=== PATIENT | female | born 1940 | race Caucasian/White ===

== ENCOUNTER 2018-03-18 05:54 | Emergency (ER) | payer MEDICARE, OTHER, SELFPAY ==
[2018-03-18 06:00] VITALS: BP 203/83; PULSE 68; RESP 18; TEMP 36.2; O2SAT 100; BMI 24.7
--- NOTE | 2018-03-18 06:43 | PC.NURSE ---
Labs drawn by denture laboratory technician.
--- NOTE | 2018-03-18 06:50 | ED_ITS ---
HPI - Back Pain/Injury General Chief Complaint: Back Pain/Injury Stated Complaint: BACK PAIN DOWN THROUGH LEFT LEG History of Present Illness HPI Narrative: HPI 77 year old female presents for evaluation of 3 days of left-sided paraspinal pain that is sharp, radiates down the posterior aspect of her leg, occurred after twisting/lifting movement, it is exacerbated by physical activity and relieved by rest. Patient denies a history of recent trauma, fevers, chills, unexpected weight loss, decreased perineal sensation when toileting, difficulty urinating or incontinence, morning stiffness, IV drug use, alcoholism, recent invasive medical procedures, presyncope, abdominal pain, or dysuria. Smoking: age 19 to 26. Anticoagulation: denies anticoagulation and Plavix, denies stents. Patient took 8 acetaminophen 3 hours prior to arrival for treatment of pain. Is adamant that she only took 8 acetaminophen. M/S/F/SocHx notable for: please see HPI; remainder reviewed with patient and in chart. ROS: Negative constitutional, eye, cardiovascular, pulmonary, GI, , MSK, skin , neurologic, psychiatric, endocrine unless noted in the HPI. Exam Gen: Pleasant, non-toxic appearing, resting comfortably. HEENT: NC, AT, PEERL, EOMI. Resp: CTAB Card: RRR GI: ND, non-tender to palpation, no palpable midline masses, no palpable midline pulsatility. : No CVA tenderness to percussion bilaterally. MSK: No visible deformities, strength and tone WNL. No lower thoracic or lumbar spinal TTP, step offs or deformities. paraspinal TTP. Skin: Normal color with no visible lesions. Neuro: AO x 3, no facial asymmetry, vision and hearing WNL. Straight leg raise test - negative right, negative left. BLE distal sensation intact, 5/5 dorsiflexion / plantarflexion bilaterally. Gait: mildly antalgic, normal, narrow based gait, able to walk unassisted and stand on heels and toes with full apparent strength. Psych: Mood and affect appropriate. Labs: acetaminophen level pending. MDM Previous chart, nursing note, and vitals reviewed. A: 77 year old female presents for evaluation of 3 days of left-sided paraspinal pain that is sharp, radiates down the posterior aspect of her leg, occurred after twisting/lifting movement, it is exacerbated by physical activity and relieved by rest. DDx: muscle strain, muscle spasm, sciatica, lumbar radiculopathy, cauda equina syndrome, spinal cord abscess, vertebral osteomyelitis, vertebral diskitis, fracture, seronegative spondyloarthropathy, abdominal aortic aneurysm, abdominal aortic dissection, spontaneous hematoma, malignant spinal cord compression, acetaminophen toxicity. Evaluation: * Cauda equina - consider unlikely given normal perineal sensation, lack of incontinence or urinary retention. * Infection - abscess, vertebral osteomyelitis, and diskitis are unlikely as the patient is immunocompetent and is with an absence of infectious signs and risk factors on ROS, and a lack of point tenderness. * Fracture - doubt given the absence of spinal TTP and lack of prior trauma * Seronegative spondyloarthropathy - unlikely, no further evaluation currently indicated given the absence of morning stiffness and negative RA, psoriatic arthritis, and autoimmune disease history. * AAA or Dissection - given the absence of significant tobacco use, the lack of a palpable pulsatile abdominal mass, abdominal pain, presyncope, an abdominal aortic aneurysm as well as dissection is considered unlikely and further investigation is not currently indicated. * Spinal Metastases - given the unremarkable ROS, absence of point spinal tenderness on exam and the lack of discernible neurological deficit, no further testing regarding this etiology is currently indicated. * Acetaminophen toxicity - per report, patient took well under a clinically significant maximum dose (500 mg/tablet x 8 tablets / 63.5 kg = 63 mg/kg). APAP level pending at time of patient care transfer to the daytime provider. * Consider lumbar radiculopathy to be the most likely cause of the patient's symptoms. Counseled patient regarding natural course of radicular back pain, given return to care instructions, and recommendation for primary care physician follow up. Prescribed [employer] 5-325 x 8 tablets QHS prn pain. Patient advised use ibuprofen for baseline pain control. Patient was notified of their elevated blood pressure and recommended to follow up with their primary care physician. As the patient is without evidence of acute end organ dysfunction no further emergent evaluation is indicated as per the 2013 [facility] clinical policy. Impression: Back Pain. (please reference below for remainder of encounter information) Related Data Home Medications Medication Instructions Recorded Confirmed ASPIRIN (Aspirin EC) 81 mg PO Q DAY #0 11/28/11 03/18/18 multivitamin [Multiple Vitamins] 1 tab PO QDAY #0 02/27/17 03/18/18 Previous Rx's Medication Instructions Recorded losartan [Cozaar] 50 mg PO QDAY #90 tab 12/31/17 levothyroxine 25 mcg PO QAM #90 tab 01/14/18 Allergies Allergy/AdvReac Type Severity Reaction Status Date / Time No Known Drug Allergies Allergy Verified 03/18/18 06:15 FOR[facility]LY [facility], [facility]–1983 Surgical History Status post LASIK surgery Family History Mother Heart disease Exam Initial Vital Signs Initial Vital Signs: Vital Signs Temperature 97.2 F L 03/18/18 06:00 Pulse Rate 68 03/18/18 06:00 Respiratory Rate 18 03/18/18 06:00 Blood Pressure 203/83 H 03/18/18 06:00 Pulse Oximetry 100 03/18/18 06:00 Course Orders Ordered: ED Orders 03/18/18 06:34 Acetaminophen Stat Vital Signs - 8 hr 03/18/18 06:00 Temperature 97.2 F L Pulse Rate 68 Respiratory Rate 18 Blood Pressure 203/83 H Pulse Oximetry 100 Discharge Plan Departure Prescriptions: No Action ASPIRIN (Aspirin EC) 81 mg PO Q DAY Qty: 0 RF: 0 multivitamin [Multiple Vitamins] 1 EACH tablet 1 tab PO QDAY Qty: 0 RF: 0 losartan [Cozaar] 50 MG tablet 50 mg PO QDAY Qty: 90 RF: 2 levothyroxine 25 MCG tablet 25 mcg PO QAM Qty: 90 RF: 0
[2018-03-18 07:07] LABS: Acetaminophen 35 ug/dL (10-30)
[2018-03-18 07:52] VITALS: BP 179/80; PULSE 76; RESP 97
== END 2018-03-18 07:54 | disposition home or self-care (01) ==
PROVIDERS: Emergency Medicine; Emergency Provider Emergency Medicine; Family Provider Family Medicine; PCP Family Medicine
DX: M54.5 Low back pain (principal)
CPT/HCPCS: 36415; 80329; 99283; G0480

== ENCOUNTER → 2018-03-22 15:55 | Outpatient (CLI) | payer MEDICARE, OTHER, SELFPAY ==
--- NOTE | 2018-03-22 15:58 | DI.RAD.S_ITS ---
PROCEDURE: XR LUMBAR SPINE 2-3V INDICATIONS: Low back pain with radiculopathy TECHNIQUE: 3 views of the lumbar spine were acquired. COMPARISON: None. FINDINGS: Bones: 5 [id number] vertebrae are present. There is normal bony alignment. Narrowing of the L3-4 disc space is present. No vertebral body compression fractures. No suspicious bony lesions. Soft tissues: Overlying bowel gas pattern is normal. No suspicious soft tissue calcifications. 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 Dictated by: Gus Landry M.D. on 03/22/2018 at 16:14 Approved by: Gus Landry M.D. on 03/22/2018 at 16:15
== END ==
PROVIDERS: Family Provider Family Medicine; PCP Family Medicine; Visit Provider Nurse Practitioner Family
DX: M51.36 Other intervertebral disc degeneration, lumbar region (principal)
CPT/HCPCS: 72100

== ENCOUNTER 2018-05-24 09:45 | Outpatient (RCR) | payer MEDICARE, OTHER, SELFPAY ==
--- NOTE | 2018-04-24 16:21 | PT.OPPOC ---
Current Diagnoses Radiculopathy, lumbar region (04/24/18) Dorsalgia, unspecified (04/24/18) Provider Visit Care Team Role Provider Type Edgar Carlin MD Family Provider Physician Primary Care Provider Specialty: [facility] Address: [address] [place] [address], [id number] Email: [email or web address]- Attending Provider Advanced Practioner Clinician Specialty: [facility] Address: [address] [place] [address], [id number] Email: Plan Of Care PT-OP-T Assessment and Plan Start: 04/24/18 06:46 Freq: Status: Active Protocol: Document 04/24/18 14:00 AMB (Rec: 04/24/18 15:59 AMB [email or web address]) Physical Therapy Assessment Rehab Potential Rehabilitation Potential Good Evaluation Complexity Number of Personal Factors/Comorbidities 1-2 Number of Body Systems Impaired 4 or More Clinical Presentation at Evaluation Evolving Impairments Impairments Activity Tolerance Pain Posture Strength Goals 3 Impairment Body mechanics Short Term Goal (STG) The patient will squat down to the floor to assist her with dressing with good body mechanics and without an increase in baseline pain. STG Duration 4 weeks Retirement Goal (LTG) The patient will lift groceries from her car with good body mechanics. LTG Duration 8 weeks 2 Impairment Activity tolerance Short Term Goal (STG) The patient will be able to get back to sleep after being woken by her without left leg pain. STG Duration 4 weeks Retirement Goal (LTG) The patient will superintendent institution the kitchen to cook a meal for one hour with 2/10 pain or less. LTG Duration 8 weeks 1 Impairment Strength Short Term Goal (STG) The patient will improve her left hip and knee strength to at least 4/5. STG Duration 4 weeks Bilingual Student Tutor Goal (LTG) The patient will improve her left lower extremity strength so that she can easily get her left leg into bed without lifting it with her other leg or hand. LTG Duration 8 weeks Assessment Summary Assessment The patient attends physical therapy with signs and symptoms of lumbar radiculopathy from a bend/ twist injury. Her continued pain is most in L3 distribution. She has poor body mechanics, and poor core strength, with weakness in hip flexion and hip adduction. She will benefit from PT to improve her overall strength, reduce her pain and educate her in body mechanics to prevent further bend/lift/ twist injuries. Physical Therapy Plan Frequency and Duration Frequency of Treatment 2x/Week Duration of Treatment 8 weeks Plan of Care Start Date 04/24/18 Plan of Care End Date 06/19/18 Therapeutic Interventions Therapeutic Interventions Home Exercise Program Manual Therapy Neuromuscular Re-education Self-Care/Home Management Soft Tissue Mobilization Therapeutic Activities Therapeutic Exercises Modalities Cold Pack/Ice Massage Electric Stimulation Hot Packs Ultrasound Next Visit Focus/Plan Next Note Type Treatment Note Next Visit Plan Progress HEP, manual therapy as needed for pain control Plan of Care Dates Plan of Care Start Date 04/24/18 Plan of Care End Date 06/19/18 Please Sign and Return: I have reviewed this Plan of Care and certify that the skilled therapy services above are required to meet the patient?s needs. Physician Signature Date Printed Name and Credentials Clinical Instructor Signature Printed Name and Credentials
--- NOTE | 2018-04-24 16:21 | PT.OIE ---
Current Diagnoses Radiculopathy, lumbar region (04/24/18) Dorsalgia, unspecified (04/24/18) Past Surgical History Status post LASIK surgery Provider Visit Care Team Role Provider Type Edgar Carlin MD Family Provider Physician Primary Care Provider Specialty: Family Practice Address: [address] [place] [address], [id number] Email: [email or web address] Trinidad Attending Provider Advanced Practioner Clinician Specialty: Family Practice Address: [address] [place] [address], [id number] Email: Physical Therapy Initial Evaluation PT-OP-A Visit Information Start: 04/24/18 06:46 Freq: Status: Active Protocol: Document 04/24/18 14:00 AMB (Rec: 04/24/18 15:10 AMB [email or web address]) Out-Patient Physical Therapy Visit Information Visit Information Visit Type Initial Evaluation Visit Start Time 14:00 Visit Stop Time 14:45 Total Visit Minutes 45 Visit Number 1 Evaluation Information Evaluation Date 04/24/18 PT-OP-B Current Condition Start: 04/24/18 06:46 Freq: Status: Active Protocol: Document 04/24/18 14:00 AMB (Rec: 04/24/18 15:24 AMB [email or web address]) Current Condition History of Current Condition Onset Date 03/18/18 Current Complaints Radiating left leg pain, denies back pain History of Current Condition The patient felt immediate onset left leg pain when standing up and twisting from tyeing her shoes. She went to the ED and they diagnosed sciatica. Since then the pain has been improving, but it is still present in her groin and can go down to her mid covarrubias. She denies specific back pain. The pain is mostly in the groin and medial knee and is constant. Heat and ice seemed to make it worse initially. Left knee gave out on the stairs 2 weeks ago, but not since. 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 She has a son who lives in [place]. They live in a two story home. She does have a caregiver who comes for 3 hours on . Prior Treatments and Tests Lumbar X-ray showed narrowing of L3-4 disc space, but per her report her physician said the X-ray came back fine. Prior Functional Status Baseline Function- ADL's Independent Baseline Function- Mobility Independent Current Functional Impairments (Reported) Functional Limitations- ADL's Difficulty sleeping Functional Limitations- Mobility/Gait Decreased standing tolerance Functional Limitations- Work/School Avoiding washing the floors because she does this on her hands and knees. Personal Factors Other Personal Factors That May Effect Pt's has Alzheimer's Therapy/Recovery and she needs to be with him or else he becomes upset. PT-OP-C Subjective Start: 04/24/18 06:46 Freq: Status: Active Protocol: Document 04/24/18 14:00 AMB (Rec: 04/24/18 15:10 AMB [email or web address]) OP-PT Subjective Patient Comments Patient Comments Pt reports overall improving pain since initial injury. Sleeping continues to be painful. Patient Questionnaires Oswestry Low Back Index Oswestry Score 44 Oswestry Impairment 40 to 59% Impaired (Score 40- 59) OP-PT Pain Assessment Pain Assessment Grid Paper Pain Assessment Grid Completed Yes Location Anterior Thigh Pain Location Details Goes down to mid covarrubias Intensity 3 Description Dull Frequency Constant Comments Pain Comments Current 3-4/10; worst in last week 5-6/10. PT-OP-F Manual Assessment Start: 04/24/18 06:46 Freq: Status: Active Protocol: Document 04/24/18 14:00 AMB (Rec: 04/24/18 16:17 AMB [email or web address]) Manual Assessments Soft Tissue Assessment Soft Tissue Mobility Assessment Tenderness and tightness at left piriformis, adductors. Joint Mobility Assessment Joint Mobility Assessment Stiffness with central PAs throughout lumbar but does not reproduce pain PT-OP-L Special Tests Start: 04/24/18 06:46 Freq: Status: Active Protocol: Document 04/24/18 14:00 AMB (Rec: 04/24/18 16:14 AMB [email or web address]) Special Tests Lumbar Spine Special Tests Straight Leg Raise Test Results negative for sx reproduction PT-OP-M Strength Start: 04/24/18 06:46 Freq: Status: Active Protocol: Document 04/24/18 14:00 AMB (Rec: 04/24/18 16:14 AMB [email or web address]) Hip Strength Hip Manual Muscle Testing Right Flexion (L2) 4+ Good+ Abduction 4+ Good+ Adduction 4 Good Left Flexion (L2) 3+ Fair+ Abduction 4- Good- Adduction 3- Fair- Knee Strength Knee Manual Muscle Testing Right Flexion (S2) 5 Normal Extension (L3) 5 Normal Left Flexion (S2) 4+ Good+ Extension (L3) 4 Good Ankle/Foot Strength Ankle and Foot Manual Muscle Testing Right Dorsiflexion (L4) 5 Normal Plantarflexion (S1) 4 Good Left Dorsiflexion (L4) 5 Normal Plantarflexion (S1) 4 Good PT-OP-Q Treatments Start: 04/24/18 06:46 Freq: Status: Active Protocol: Document 04/24/18 14:00 AMB (Rec: 04/24/18 15:59 AMB [email or web address]) Therapeutic Exercises Supine Exercises 3 Supine Exercise Name hip flexor stretch Side left Reps/Minutes 30x2 Comments L leg off table, R single knee to chest 2 Supine Exercise Name lower trunk rotation, hooklying Side bilateral Reps/Minutes 15 1 Supine Exercise Name SLR hip flexion Side left Reps/Minutes 10 Comments with transversus abdominus stabilization PT-OP-T Assessment and Plan Start: 04/24/18 06:46 Freq: Status: Active Protocol: Document 04/24/18 14:00 AMB (Rec: 04/24/18 15:59 AMB [email or web address]) Physical Therapy Assessment Rehab Potential Rehabilitation Potential Good Evaluation Complexity Number of Personal Factors/Comorbidities 1-2 Number of Body Systems Impaired 4 or More Clinical Presentation at Evaluation Evolving Impairments Impairments Activity Tolerance Pain Posture Strength Goals 3 Impairment Body mechanics Short Term Goal (STG) The patient will squat down to the floor to assist her with dressing with good body mechanics and without an increase in baseline pain. STG Duration 4 weeks Senior Living Goal (LTG) The patient will lift groceries from her car with good body mechanics. LTG Duration 8 weeks 2 Impairment Activity tolerance Short Term Goal (STG) The patient will be able to get back to sleep after being woken by her without left leg pain. STG Duration 4 weeks Senior Living Goal (LTG) The patient will bar machine operator production the kitchen to cook a meal for one hour with 2/10 pain or less. LTG Duration 8 weeks 1 Impairment Strength Short Term Goal (STG) The patient will improve her left hip and knee strength to at least 4/5. STG Duration 4 weeks High Risk Ob Goal (LTG) The patient will improve her left lower extremity strength so that she can easily get her left leg into bed without lifting it with her other leg or hand. LTG Duration 8 weeks Assessment Summary Assessment The patient attends physical therapy with signs and symptoms of lumbar radiculopathy from a bend/ twist injury. Her continued pain is most in L3 distribution. She has poor body mechanics, and poor core strength, with weakness in hip flexion and hip adduction. She will benefit from PT to improve her overall strength, reduce her pain and educate her in body mechanics to prevent further bend/lift/ twist injuries. Physical Therapy Plan Frequency and Duration Frequency of Treatment 2x/Week Duration of Treatment 8 weeks Plan of Care Start Date 04/24/18 Plan of Care End Date 06/19/18 Therapeutic Interventions Therapeutic Interventions Home Exercise Program Manual Therapy Neuromuscular Re-education Self-Care/Home Management Soft Tissue Mobilization Therapeutic Activities Therapeutic Exercises Modalities Cold Pack/Ice Massage Electric Stimulation Hot Packs Ultrasound Next Visit Focus/Plan Next Note Type Treatment Note Next Visit Plan Progress HEP, manual therapy as needed for pain control
--- NOTE | 2018-04-30 12:43 | PT.OTN ---
Current Diagnoses Radiculopathy, lumbar region (04/30/18) Dorsalgia, unspecified (04/30/18) Physical Therapy Treatment Note PT-OP-A Visit Information Start: 04/24/18 06:46 Freq: Status: Active Protocol: Document 04/30/18 11:15 GGD (Rec: 04/30/18 12:42 GGD [email or web address]) Out-Patient Physical Therapy Visit Information Visit Information Visit Type Treatment Note Visit Start Time 11:15 Visit Stop Time 11:55 Total Visit Minutes 40 Visit Number 2 Number of EMBEDDED FIRMWARE ENGINEER Visits 1 Evaluation Information Evaluation Date 04/24/18 PT-OP-B Current Condition Start: 04/24/18 06:46 Freq: Status: Active Protocol: Document 04/24/18 14:00 AMB (Rec: 04/24/18 15:24 AMB [email or web address]) Current Condition History of Current Condition Onset Date 03/18/18 Current Complaints Radiating left leg pain, denies back pain History of Current Condition The patient felt immediate onset left leg pain when standing up and twisting from tyeing her shoes. She went to the ED and they diagnosed sciatica. Since then the pain has been improving, but it is still present in her groin and can go down to her mid covarrubias. She denies specific back pain. The pain is mostly in the groin and medial knee and is constant. Heat and ice seemed to make it worse initially. Left knee gave out on the stairs 2 weeks ago, but not since. 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 She has a son who lives in [place]. They live in a two story home. She does have a caregiver who comes for 3 hours on . Prior Treatments and Tests Lumbar X-ray showed narrowing of L3-4 disc space, but per her report her physician said the X-ray came back fine. Prior Functional Status Baseline Function- ADL's Independent Baseline Function- Mobility Independent Current Functional Impairments (Reported) Functional Limitations- ADL's Difficulty sleeping Functional Limitations- Mobility/Gait Decreased standing tolerance Functional Limitations- Work/School Avoiding washing the floors because she does this on her hands and knees. Personal Factors Other Personal Factors That May Effect Pt's has Alzheimer's Therapy/Recovery and she needs to be with him or else he becomes upset. PT-OP-C Subjective Start: 04/24/18 06:46 Freq: Status: Active Protocol: Document 04/30/18 11:15 GGD (Rec: 04/30/18 12:42 GGD [email or web address]) OP-PT Subjective Patient Comments Patient Comments Pt states she been doing her HEP. She having increase pain with sleeping. PT-OP-Q Treatments Start: 04/24/18 06:46 Freq: Status: Active Protocol: Document 04/30/18 11:15 GGD (Rec: 04/30/18 12:42 GGD [email or web address]) Therapeutic Exercises Supine Exercises 6 Supine Exercise Name abdominal bracing. Reps/Minutes 10 5 Supine Exercise Name Hand push on knee on side at time Reps/Minutes 2 4 Supine Exercise Name Pirif str Side bilateral Reps/Minutes 2 3 Supine Exercise Name hip flexor stretch Side left Reps/Minutes 30x2 Comments L leg off table, R single knee to chest 2 Supine Exercise Name lower trunk rotation, hooklying Side bilateral Reps/Minutes 15 1 Supine Exercise Name SLR hip flexion Side left Reps/Minutes 10 Comments with transversus abdominus stabilization Sidelying Exercises 1 Sidelying Exercise Name clamshells Side bilateral Reps/Minutes 20 Therapeutic Activity Therapeutic Activity 1 Name body mechanics Reps/Minutes 10 Comments with gardening and dressing , Log roll for bed mobility, sleep positioning Manual Therapy Treatment Soft Tissue Mobilization 1 Body Location L/S paraspinals and QL Mobilization Type Myofascial Release Rolling Intensity/Depth Moderate Body Position Sidelying PT-OP-T Assessment and Plan Start: 04/24/18 06:46 Freq: Status: Active Protocol: Document 04/30/18 11:15 GGD (Rec: 04/30/18 12:42 GGD [email or web address]) Physical Therapy Assessment Assessment Summary Assessment Pt need cues with all exerices . She was combining exerices together. She had decrease in pain with treatment. Physical Therapy Plan Frequency and Duration Frequency of Treatment 2x/Week Duration of Treatment 8 weeks Plan of Care Start Date 04/24/18 Plan of Care End Date 06/19/18 Next Visit Focus/Plan Next Note Type Treatment Note Next Visit Plan Review HEP and sleep positioning.
--- NOTE | 2018-05-03 16:33 | PT.OTN ---
Current Diagnoses Radiculopathy, lumbar region (05/03/18) Dorsalgia, unspecified (05/03/18) Physical Therapy Treatment Note PT-OP-A Visit Information Start: 04/24/18 06:46 Freq: Status: Active Protocol: Document 05/03/18 15:15 SAK (Rec: 05/03/18 16:32 SAK [email or web address]) Out-Patient Physical Therapy Visit Information Visit Information Visit Type Treatment Note Visit Start Time 15:15 Visit Stop Time 15:55 Total Visit Minutes 40 Visit Number 3 Number of MASTER LAY OUT SPECIALIST Visits 0 PT-OP-B Current Condition Start: 04/24/18 06:46 Freq: Status: Active Protocol: Document 04/24/18 14:00 AMB (Rec: 04/24/18 15:24 AMB [email or web address]) Current Condition History of Current Condition Onset Date 03/18/18 Current Complaints Radiating left leg pain, denies back pain History of Current Condition The patient felt immediate onset left leg pain when standing up and twisting from tyeing her shoes. She went to the ED and they diagnosed sciatica. Since then the pain has been improving, but it is still present in her groin and can go down to her mid covarrubias. She denies specific back pain. The pain is mostly in the groin and medial knee and is constant. Heat and ice seemed to make it worse initially. Left knee gave out on the stairs 2 weeks ago, but not since. 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 She has a son who lives in [place]. They live in a two story home. She does have a caregiver who comes for 3 hours on . Prior Treatments and Tests Lumbar X-ray showed narrowing of L3-4 disc space, but per her report her physician said the X-ray came back fine. Prior Functional Status Baseline Function- ADL's Independent Baseline Function- Mobility Independent Current Functional Impairments (Reported) Functional Limitations- ADL's Difficulty sleeping Functional Limitations- Mobility/Gait Decreased standing tolerance Functional Limitations- Work/School Avoiding washing the floors because she does this on her hands and knees. Personal Factors Other Personal Factors That May Effect Pt's has Alzheimer's Therapy/Recovery and she needs to be with him or else he becomes upset. PT-OP-C Subjective Start: 04/24/18 06:46 Freq: Status: Active Protocol: Document 05/03/18 15:15 SAK (Rec: 05/03/18 16:32 SAK [id number]) OP-PT Subjective Patient Comments Patient Comments No new c/o, no pain past thigh . Compliant with HEP. PT-OP-F Manual Assessment Start: 04/24/18 06:46 Freq: Status: Active Protocol: Document 04/24/18 14:00 AMB (Rec: 04/24/18 16:17 AMB [email or web address]) Manual Assessments Soft Tissue Assessment Soft Tissue Mobility Assessment Tenderness and tightness at left piriformis, adductors. Joint Mobility Assessment Joint Mobility Assessment Stiffness with central PAs throughout lumbar but does not reproduce pain PT-OP-L Special Tests Start: 04/24/18 06:46 Freq: Status: Active Protocol: Document 04/24/18 14:00 AMB (Rec: 04/24/18 16:14 AMB [email or web address]) Special Tests Lumbar Spine Special Tests Straight Leg Raise Test Results negative for sx reproduction PT-OP-M Strength Start: 04/24/18 06:46 Freq: Status: Active Protocol: Document 04/24/18 14:00 AMB (Rec: 04/24/18 16:14 AMB [email or web address]) Hip Strength Hip Manual Muscle Testing Right Flexion (L2) 4+ Good+ Abduction 4+ Good+ Adduction 4 Good Left Flexion (L2) 3+ Fair+ Abduction 4- Good- Adduction 3- Fair- Knee Strength Knee Manual Muscle Testing Right Flexion (S2) 5 Normal Extension (L3) 5 Normal Left Flexion (S2) 4+ Good+ Extension (L3) 4 Good Ankle/Foot Strength Ankle and Foot Manual Muscle Testing Right Dorsiflexion (L4) 5 Normal Plantarflexion (S1) 4 Good Left Dorsiflexion (L4) 5 Normal Plantarflexion (S1) 4 Good PT-OP-Q Treatments Start: 04/24/18 06:46 Freq: Status: Active Protocol: Document 05/03/18 15:15 SAK (Rec: 05/03/18 15:23 SAK [id number]) Cardio Equipment Recumbent Stepper (Sci-Fit) Duration (Minutes) 5 Resistance 1.0 Seat Position 7 Gym Equipment Shuttle Recovery Bilateral Squats Resistance 50# Reps/Time 2 x 10 Therapeutic Exercises Supine Exercises 8 Supine Exercise Name Hip ab/ER with L1 TB Reps/Minutes 5 7 Supine Exercise Name TA with hip add lul Equipment Used pillow Reps/Minutes 5 Standing Exercises 2 Standing Exercise Name HC stretch Reps/Minutes 2 min 1 Standing Exercise Name row, shld ext Resistance L1 TB Reps/Minutes 10x Manual Therapy Treatment Soft Tissue Mobilization 1 Body Location L/S paraspinals and QL Mobilization Type Myofascial Release Rolling Intensity/Depth Moderate Body Position Sidelying Other Other Manual Treatments supine manual pelvic traction x 5 min Self-Care/Home Management Treatment Activities Self-Care/Home Management Activities Patient education regarding correct body mechanics for household and caregiver activities. Reviewed appropriate sleep position, activation of core prior to all movement including bed mobility. PT-OP-T Assessment and Plan Start: 04/24/18 06:46 Freq: Status: Active Protocol: Document 05/03/18 15:15 [facility] (Rec: 05/03/18 16:32 [facility] [id number]) Physical Therapy Assessment Goals 3 Impairment Body mechanics Short Term Goal (STG) The patient will squat down to the floor to assist her with dressing with good body mechanics and without an increase in baseline pain. STG Duration 4 weeks Senior Living Goal (LTG) The patient will lift groceries from her car with good body mechanics. LTG Duration 8 weeks 2 Impairment Activity tolerance Short Term Goal (STG) The patient will be able to get back to sleep after being woken by her without left leg pain. STG Duration 4 weeks Waste Management Recycling Technician Goal (LTG) The patient will refuse and recycling worker the kitchen to cook a meal for one hour with 2/10 pain or less. LTG Duration 8 weeks 1 Impairment Strength Short Term Goal (STG) The patient will improve her left hip and knee strength to at least 4/5. STG Duration 4 weeks Senior Living Goal (LTG) The patient will improve her left lower extremity strength so that she can easily get her left leg into bed without lifting it with her other leg or hand. LTG Duration 8 weeks Assessment Summary Assessment Improved exercise tolerance, independent with previously instructed exercises, receptive to advancement of ex today. Patient reported decreased pain with manual pelvic traction Physical Therapy Plan Frequency and Duration Frequency of Treatment 2x/Week Duration of Treatment 8 weeks Plan of Care Start Date 04/24/18 Plan of Care End Date 06/19/18 Therapeutic Interventions Therapeutic Interventions Home Exercise Program Manual Therapy Neuromuscular Re-education Self-Care/Home Management Soft Tissue Mobilization Therapeutic Activities Therapeutic Exercises Modalities Cold Pack/Ice Massage Electric Stimulation Hot Packs Ultrasound Next Visit Focus/Plan Next Note Type Treatment Note
--- NOTE | 2018-05-08 12:45 | PT.OTN ---
Current Diagnoses Radiculopathy, lumbar region (05/08/18) Dorsalgia, unspecified (05/08/18) Physical Therapy Treatment Note PT-OP-A Visit Information Start: 04/24/18 06:46 Freq: Status: Active Protocol: Document 05/08/18 12:45 [facility] (Rec: 05/08/18 13:42 RCC [email or web address]) Out-Patient Physical Therapy Visit Information Visit Information Visit Type Treatment Note Visit Start Time 12:05 Visit Stop Time 12:45 Total Visit Minutes 40 Visit Number 4 Number of VICTIM WITNESS ADMINISTRATOR Visits 0 Evaluation Information Evaluation Date 04/24/18 PT-OP-B Current Condition Start: 04/24/18 06:46 Freq: Status: Active Protocol: Document 04/24/18 14:00 AMB (Rec: 04/24/18 15:24 AMB [email or web address]) Current Condition History of Current Condition Onset Date 03/18/18 Current Complaints Radiating left leg pain, denies back pain History of Current Condition The patient felt immediate onset left leg pain when standing up and twisting from tyeing her shoes. She went to the ED and they diagnosed sciatica. Since then the pain has been improving, but it is still present in her groin and can go down to her mid covarrubias. She denies specific back pain. The pain is mostly in the groin and medial knee and is constant. Heat and ice seemed to make it worse initially. Left knee gave out on the stairs 2 weeks ago, but not since. 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 She has a son who lives in [place]. They live in a two story home. She does have a caregiver who comes for 3 hours on . Prior Treatments and Tests Lumbar X-ray showed narrowing of L3-4 disc space, but per her report her physician said the X-ray came back fine. Prior Functional Status Baseline Function- ADL's Independent Baseline Function- Mobility Independent Current Functional Impairments (Reported) Functional Limitations- ADL's Difficulty sleeping Functional Limitations- Mobility/Gait Decreased standing tolerance Functional Limitations- Work/School Avoiding washing the floors because she does this on her hands and knees. Personal Factors Other Personal Factors That May Effect Pt's has Alzheimer's Therapy/Recovery and she needs to be with him or else he becomes upset. PT-OP-C Subjective Start: 04/24/18 06:46 Freq: Status: Active Protocol: Document 05/08/18 12:45 RCC (Rec: 05/08/18 13:42 RCC [email or web address]) OP-PT Subjective Patient Comments Patient Comments Pt reports that she is still having constant, but lower amount of pain in the L thigh. She is happy with her progress with PT thus far. PT-OP-F Manual Assessment Start: 04/24/18 06:46 Freq: Status: Active Protocol: Document 04/24/18 14:00 AMB (Rec: 04/24/18 16:17 AMB [email or web address]) Manual Assessments Soft Tissue Assessment Soft Tissue Mobility Assessment Tenderness and tightness at left piriformis, adductors. Joint Mobility Assessment Joint Mobility Assessment Stiffness with central PAs throughout lumbar but does not reproduce pain PT-OP-L Special Tests Start: 04/24/18 06:46 Freq: Status: Active Protocol: Document 04/24/18 14:00 AMB (Rec: 04/24/18 16:14 AMB [email or web address]) Special Tests Lumbar Spine Special Tests Straight Leg Raise Test Results negative for sx reproduction PT-OP-M Strength Start: 04/24/18 06:46 Freq: Status: Active Protocol: Document 04/24/18 14:00 AMB (Rec: 04/24/18 16:14 AMB [email or web address]) Hip Strength Hip Manual Muscle Testing Right Flexion (L2) 4+ Good+ Abduction 4+ Good+ Adduction 4 Good Left Flexion (L2) 3+ Fair+ Abduction 4- Good- Adduction 3- Fair- Knee Strength Knee Manual Muscle Testing Right Flexion (S2) 5 Normal Extension (L3) 5 Normal Left Flexion (S2) 4+ Good+ Extension (L3) 4 Good Ankle/Foot Strength Ankle and Foot Manual Muscle Testing Right Dorsiflexion (L4) 5 Normal Plantarflexion (S1) 4 Good Left Dorsiflexion (L4) 5 Normal Plantarflexion (S1) 4 Good PT-OP-Q Treatments Start: 04/24/18 06:46 Freq: Status: Active Protocol: Document 05/08/18 12:45 RCC (Rec: 05/08/18 13:42 RCC [email or web address]) Cardio Equipment Recumbent Elliptical (Biodex) Duration (Minutes) 6 Resistance 1 Gym Equipment Shuttle Recovery Bilateral Squats Resistance 100 lbs Reps/Time 1x15 Therapeutic Exercises Sidelying Exercises 2 Sidelying Exercise Name Clamshells Side left Resistance L1 Reps/Minutes 1x15 Standing Exercises 3 Standing Exercise Name L hip extension Side left Resistance L1 Reps/Minutes 1x15 2 Standing Exercise Name HC stretch Reps/Minutes 2 min Manual Therapy Treatment Soft Tissue Mobilization 1 Body Location L/S paraspinals and QL Mobilization Type Myofascial Release Rolling Intensity/Depth Moderate Body Position Sidelying Joint Mobilizations 1 Joint L3-4 Direction Gapping Grade III Body Position Sidelying Nerve Glides 1 Nerve femoral nerve glides Body Position Sidelying Comments left PT-OP-T Assessment and Plan Start: 04/24/18 06:46 Freq: Status: Active Protocol: Document 05/08/18 12:45 RCC (Rec: 05/08/18 13:42 RCC [email or web address]) Physical Therapy Assessment Assessment Summary Assessment Pt with tension noted in the femoral nerve on the L, but tolerated gentle nerve gliding . Pt with hypomobility at L3-4 on the L with gapping technique, but no c/o pain at that level. Physical Therapy Plan Frequency and Duration Frequency of Treatment 2x/Week Duration of Treatment 8 weeks Plan of Care Start Date 04/24/18 Plan of Care End Date 06/19/18 Next Visit Focus/Plan Next Note Type Treatment Note Next Visit Plan advance core and LE stability/ strengthening as tolerated.
--- NOTE | 2018-05-10 12:45 | PT.OTN ---
Current Diagnoses Radiculopathy, lumbar region (05/10/18) Dorsalgia, unspecified (05/10/18) Physical Therapy Treatment Note PT-OP-A Visit Information Start: 04/24/18 06:46 Freq: Status: Active Protocol: Document 05/10/18 12:45 RCC (Rec: 05/10/18 13:41 RCC [email or web address]) Out-Patient Physical Therapy Visit Information Visit Information Visit Type Treatment Note Visit Start Time 12:00 Visit Stop Time 12:43 Total Visit Minutes 43 Visit Number 5 Number of PLASTICS TOOLING ENGINEER Visits 0 Evaluation Information Evaluation Date 04/24/18 PT-OP-B Current Condition Start: 04/24/18 06:46 Freq: Status: Active Protocol: Document 04/24/18 14:00 AMB (Rec: 04/24/18 15:24 AMB [email or web address]) Current Condition History of Current Condition Onset Date 03/18/18 Current Complaints Radiating left leg pain, denies back pain History of Current Condition The patient felt immediate onset left leg pain when standing up and twisting from tyeing her shoes. She went to the ED and they diagnosed sciatica. Since then the pain has been improving, but it is still present in her groin and can go down to her mid covarrubias. She denies specific back pain. The pain is mostly in the groin and medial knee and is constant. Heat and ice seemed to make it worse initially. Left knee gave out on the stairs 2 weeks ago, but not since. 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 She has a son who lives in [place]. They live in a two story home. She does have a caregiver who comes for 3 hours on . Prior Treatments and Tests Lumbar X-ray showed narrowing of L3-4 disc space, but per her report her physician said the X-ray came back fine. Prior Functional Status Baseline Function- ADL's Independent Baseline Function- Mobility Independent Current Functional Impairments (Reported) Functional Limitations- ADL's Difficulty sleeping Functional Limitations- Mobility/Gait Decreased standing tolerance Functional Limitations- Work/School Avoiding washing the floors because she does this on her hands and knees. Personal Factors Other Personal Factors That May Effect Pt's has Alzheimer's Therapy/Recovery and she needs to be with him or else he becomes upset. PT-OP-C Subjective Start: 04/24/18 06:46 Freq: Status: Active Protocol: Document 05/10/18 12:45 RCC (Rec: 05/10/18 13:41 RCC [email or web address]) OP-PT Subjective Patient Comments Patient Comments Pt notes that she does not have any back pain today. She felt good after last session, no increase in pain. PT-OP-F Manual Assessment Start: 04/24/18 06:46 Freq: Status: Active Protocol: Document 04/24/18 14:00 AMB (Rec: 04/24/18 16:17 AMB [email or web address]) Manual Assessments Soft Tissue Assessment Soft Tissue Mobility Assessment Tenderness and tightness at left piriformis, adductors. Joint Mobility Assessment Joint Mobility Assessment Stiffness with central PAs throughout lumbar but does not reproduce pain PT-OP-L Special Tests Start: 04/24/18 06:46 Freq: Status: Active Protocol: Document 04/24/18 14:00 AMB (Rec: 04/24/18 16:14 AMB [email or web address]) Special Tests Lumbar Spine Special Tests Straight Leg Raise Test Results negative for sx reproduction PT-OP-M Strength Start: 04/24/18 06:46 Freq: Status: Active Protocol: Document 04/24/18 14:00 AMB (Rec: 04/24/18 16:14 AMB [email or web address]) Hip Strength Hip Manual Muscle Testing Right Flexion (L2) 4+ Good+ Abduction 4+ Good+ Adduction 4 Good Left Flexion (L2) 3+ Fair+ Abduction 4- Good- Adduction 3- Fair- Knee Strength Knee Manual Muscle Testing Right Flexion (S2) 5 Normal Extension (L3) 5 Normal Left Flexion (S2) 4+ Good+ Extension (L3) 4 Good Ankle/Foot Strength Ankle and Foot Manual Muscle Testing Right Dorsiflexion (L4) 5 Normal Plantarflexion (S1) 4 Good Left Dorsiflexion (L4) 5 Normal Plantarflexion (S1) 4 Good PT-OP-Q Treatments Start: 04/24/18 06:46 Freq: Status: Active Protocol: Document 05/10/18 12:45 RCC (Rec: 05/10/18 13:41 RCC [email or web address]) Cardio Equipment Recumbent Elliptical (Biodex) Duration (Minutes) 6 Resistance 4 Gym Equipment Shuttle Recovery Unilateral Heel Raises Resistance 50 lbs Shuttle Recovery Platform Stable Reps/Time 1x15 each Bilateral Squats Resistance 100 lbs Shuttle Recovery Platform Stable Reps/Time 1x15 Shuttle Balance 1 Details Red- DL A/P and lateral Reps/Duration 6 min Therapeutic Exercises Supine Exercises 10 Supine Exercise Name bridging Side bilateral Equipment Used 55 cm ball Reps/Minutes 1x20 9 Supine Exercise Name hip adduction Side bilateral Equipment Used ball Reps/Minutes 1x15 Comments 5 sec hold Standing Exercises 4 Standing Exercise Name HS stretch Side bilateral Equipment Used stairs 2 Standing Exercise Name HC stretch Reps/Minutes 2 min Manual Therapy Treatment Joint Mobilizations 2 Joint L hip Direction inferior and lateral Grade III Body Position Supine Manual Techniques 1 Type MET Body Location pelvis Body Position hook lying Comments R hip flexion, L hip extension followed by bilateral hip adduction PT-OP-T Assessment and Plan Start: 04/24/18 06:46 Freq: Status: Active Protocol: Document 05/10/18 12:45 RCC (Rec: 05/10/18 13:41 RCC [email or web address]) Physical Therapy Assessment Assessment Summary Assessment Pt with decreased recovery of balance on the L compared to the R. She tolerated exercise without c/o pain. She demonstrated a L anterior ilial rotation which was corrected with MET this session. Physical Therapy Plan Frequency and Duration Frequency of Treatment 2x/Week Duration of Treatment 8 weeks Plan of Care Start Date 04/24/18 Plan of Care End Date 06/19/18 Next Visit Focus/Plan Next Note Type Treatment Note Next Visit Plan core strength, hip flexibility & strength, and balance training.
--- NOTE | 2018-05-17 10:29 | PT.OTN ---
Current Diagnoses Radiculopathy, lumbar region (05/17/18) Dorsalgia, unspecified (05/17/18) Physical Therapy Treatment Note PT-OP-A Visit Information Start: 04/24/18 06:46 Freq: Status: Active Protocol: Document 05/17/18 10:29 RCC (Rec: 05/17/18 10:35 RCC [email or web address]) Out-Patient Physical Therapy Visit Information Visit Information Visit Type Treatment Note Visit Start Time 09:50 Visit Stop Time 10:29 Total Visit Minutes 39 Visit Number 6 Number of AGRICULTURE SPECIALIST Visits 0 Evaluation Information Evaluation Date 04/24/18 PT-OP-B Current Condition Start: 04/24/18 06:46 Freq: Status: Active Protocol: Document 04/24/18 14:00 AMB (Rec: 04/24/18 15:24 AMB [email or web address]) Current Condition History of Current Condition Onset Date 03/18/18 Current Complaints Radiating left leg pain, denies back pain History of Current Condition The patient felt immediate onset left leg pain when standing up and twisting from tyeing her shoes. She went to the ED and they diagnosed sciatica. Since then the pain has been improving, but it is still present in her groin and can go down to her mid covarrubias. She denies specific back pain. The pain is mostly in the groin and medial knee and is constant. Heat and ice seemed to make it worse initially. Left knee gave out on the stairs 2 weeks ago, but not since. 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 She has a son who lives in [place]. They live in a two story home. She does have a caregiver who comes for 3 hours on . Prior Treatments and Tests Lumbar X-ray showed narrowing of L3-4 disc space, but per her report her physician said the X-ray came back fine. Prior Functional Status Baseline Function- ADL's Independent Baseline Function- Mobility Independent Current Functional Impairments (Reported) Functional Limitations- ADL's Difficulty sleeping Functional Limitations- Mobility/Gait Decreased standing tolerance Functional Limitations- Work/School Avoiding washing the floors because she does this on her hands and knees. Personal Factors Other Personal Factors That May Effect Pt's has Alzheimer's Therapy/Recovery and she needs to be with him or else he becomes upset. PT-OP-C Subjective Start: 04/24/18 06:46 Freq: Status: Active Protocol: Document 05/17/18 10:29 RCC (Rec: 05/17/18 10:35 RCC [email or web address]) OP-PT Subjective Patient Comments Patient Comments Pt notes pain is only in the late afternoon, medial L thigh . Denies pain in back and knee . PT-OP-F Manual Assessment Start: 04/24/18 06:46 Freq: Status: Active Protocol: Document 05/17/18 10:29 RCC (Rec: 05/17/18 10:35 RCC [email or web address]) Manual Assessments Soft Tissue Assessment Soft Tissue Mobility Assessment TTP: L adductors PT-OP-L Special Tests Start: 04/24/18 06:46 Freq: Status: Active Protocol: Document 04/24/18 14:00 AMB (Rec: 04/24/18 16:14 AMB [email or web address]) Special Tests Lumbar Spine Special Tests Straight Leg Raise Test Results negative for sx reproduction PT-OP-M Strength Start: 04/24/18 06:46 Freq: Status: Active Protocol: Document 04/24/18 14:00 AMB (Rec: 04/24/18 16:14 AMB [email or web address]) Hip Strength Hip Manual Muscle Testing Right Flexion (L2) 4+ Good+ Abduction 4+ Good+ Adduction 4 Good Left Flexion (L2) 3+ Fair+ Abduction 4- Good- Adduction 3- Fair- Knee Strength Knee Manual Muscle Testing Right Flexion (S2) 5 Normal Extension (L3) 5 Normal Left Flexion (S2) 4+ Good+ Extension (L3) 4 Good Ankle/Foot Strength Ankle and Foot Manual Muscle Testing Right Dorsiflexion (L4) 5 Normal Plantarflexion (S1) 4 Good Left Dorsiflexion (L4) 5 Normal Plantarflexion (S1) 4 Good PT-OP-Q Treatments Start: 04/24/18 06:46 Freq: Status: Active Protocol: Document 05/17/18 10:29 RCC (Rec: 05/17/18 10:35 RCC [email or web address]) Cardio Equipment Recumbent Elliptical (Biodex) Duration (Minutes) 8 Resistance 4 Gym Equipment Cable Column (Body Solid) Hip Adduction Resistance 5 plates Reps/Time 1x15 Shuttle Recovery Unilateral Heel Raises Resistance 50 lbs Shuttle Recovery Platform Stable Reps/Time 1x15 each Bilateral Squats Resistance 100 lbs Shuttle Recovery Platform Stable Reps/Time 1x15 Shuttle Balance 1 Details Red- DL A/P and lateral Reps/Duration 10 min Therapeutic Exercises Standing Exercises 5 Standing Exercise Name lateral walks Side bilateral Resistance L2 band Reps/Minutes 2 laps 4 Standing Exercise Name HS stretch Side bilateral Equipment Used stairs 2 Standing Exercise Name HC stretch Reps/Minutes 2 min Manual Therapy Treatment Soft Tissue Mobilization 2 Body Location L adductors Mobilization Type Rolling Intensity/Depth Moderate Body Position Hooklying PT-OP-T Assessment and Plan Start: 04/24/18 06:46 Freq: Status: Active Protocol: Document 05/17/18 10:29 RCC (Rec: 05/17/18 10:35 RCC [email or web address]) Physical Therapy Assessment Assessment Summary Assessment Pt with moderate tension in adductors of the LLE, middle 1 /3 of thigh. Pt is improving with activity tolerance, and demonstrates good pacing of activities and no c/o pain. Physical Therapy Plan Frequency and Duration Frequency of Treatment 2x/Week Duration of Treatment 8 weeks Plan of Care Start Date 04/24/18 Plan of Care End Date 06/19/18 Next Visit Focus/Plan Next Note Type Treatment Note Next Visit Plan core stability, hip strengthening.
--- NOTE | 2018-05-22 10:39 | PT.OTN ---
Current Diagnoses Radiculopathy, lumbar region (05/22/18) Dorsalgia, unspecified (05/22/18) Physical Therapy Treatment Note PT-OP-A Visit Information Start: 04/24/18 06:46 Freq: Status: Active Protocol: Document 05/22/18 09:00 AMB (Rec: 05/22/18 09:06 AMB [id number]) Out-Patient Physical Therapy Visit Information Visit Information Visit Type Treatment Note Visit Start Time 09:00 Visit Stop Time 09:40 Total Visit Minutes 40 Visit Number 7 Number of STEVEDORE HOLD Visits 0 Evaluation Information Evaluation Date 04/24/18 PT-OP-B Current Condition Start: 04/24/18 06:46 Freq: Status: Active Protocol: Document 04/24/18 14:00 AMB (Rec: 04/24/18 15:24 AMB [email or web address]) Current Condition History of Current Condition Onset Date 03/18/18 Current Complaints Radiating left leg pain, denies back pain History of Current Condition The patient felt immediate onset left leg pain when standing up and twisting from tyeing her shoes. She went to the ED and they diagnosed sciatica. Since then the pain has been improving, but it is still present in her groin and can go down to her mid covarrubias. She denies specific back pain. The pain is mostly in the groin and medial knee and is constant. Heat and ice seemed to make it worse initially. Left knee gave out on the stairs 2 weeks ago, but not since. 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 She has a son who lives in [place]. They live in a two story home. She does have a caregiver who comes for 3 hours on . Prior Treatments and Tests Lumbar X-ray showed narrowing of L3-4 disc space, but per her report her physician said the X-ray came back fine. Prior Functional Status Baseline Function- ADL's Independent Baseline Function- Mobility Independent Current Functional Impairments (Reported) Functional Limitations- ADL's Difficulty sleeping Functional Limitations- Mobility/Gait Decreased standing tolerance Functional Limitations- Work/School Avoiding washing the floors because she does this on her hands and knees. Personal Factors Other Personal Factors That May Effect Pt's has Alzheimer's Therapy/Recovery and she needs to be with him or else he becomes upset. PT-OP-C Subjective Start: 04/24/18 06:46 Freq: Status: Active Protocol: Document 05/22/18 09:00 AMB (Rec: 05/22/18 09:06 AMB [id number]) OP-PT Subjective Patient Comments Patient Comments Pt continues to note medial thigh pain in the evening ( after cooking dinner she sits down and that is when she is aware of it). PT-OP-F Manual Assessment Start: 04/24/18 06:46 Freq: Status: Active Protocol: Document 05/17/18 10:29 RCC (Rec: 05/17/18 10:35 RCC [email or web address]) Manual Assessments Soft Tissue Assessment Soft Tissue Mobility Assessment TTP: L adductors PT-OP-L Special Tests Start: 04/24/18 06:46 Freq: Status: Active Protocol: Document 04/24/18 14:00 AMB (Rec: 04/24/18 16:14 AMB [email or web address]) Special Tests Lumbar Spine Special Tests Straight Leg Raise Test Results negative for sx reproduction PT-OP-M Strength Start: 04/24/18 06:46 Freq: Status: Active Protocol: Document 04/24/18 14:00 AMB (Rec: 04/24/18 16:14 AMB [email or web address]) Hip Strength Hip Manual Muscle Testing Right Flexion (L2) 4+ Good+ Abduction 4+ Good+ Adduction 4 Good Left Flexion (L2) 3+ Fair+ Abduction 4- Good- Adduction 3- Fair- Knee Strength Knee Manual Muscle Testing Right Flexion (S2) 5 Normal Extension (L3) 5 Normal Left Flexion (S2) 4+ Good+ Extension (L3) 4 Good Ankle/Foot Strength Ankle and Foot Manual Muscle Testing Right Dorsiflexion (L4) 5 Normal Plantarflexion (S1) 4 Good Left Dorsiflexion (L4) 5 Normal Plantarflexion (S1) 4 Good PT-OP-Q Treatments Start: 04/24/18 06:46 Freq: Status: Active Protocol: Document 05/22/18 09:00 AMB (Rec: 05/22/18 09:13 AMB [id number]) Cardio Equipment Recumbent Elliptical (Biodex) Duration (Minutes) 8 Resistance 4 Gym Equipment Shuttle Recovery Bilateral Squats Resistance 100 lbs Shuttle Recovery Platform Stable Reps/Time 2x15 Therapeutic Exercises Supine Exercises 11 Supine Exercise Name adductor/hamstring stretch Comments with band 10 Supine Exercise Name bridging Side bilateral Equipment Used 55 cm ball Reps/Minutes 1x20 9 Supine Exercise Name hip adduction Side bilateral Equipment Used ball Reps/Minutes 1x15 Comments 5 sec hold Sidelying Exercises 1 Sidelying Exercise Name hip adduction SLR Reps/Minutes 10 Manual Therapy Treatment Soft Tissue Mobilization 2 Body Location L adductors Mobilization Type Rolling Intensity/Depth Moderate Body Position Hooklying PT-OP-T Assessment and Plan Start: 04/24/18 06:46 Freq: Status: Active Protocol: Document 05/22/18 10:35 AMB (Rec: 05/22/18 10:37 AMB [id number]) Physical Therapy Assessment Assessment Summary Assessment Pt states pain is fairly well resolved. HEP has not been progressed much, so we will work on that, and education in self myofascial release. She sits on the couch with her legs extended when the pain is present, and does have tight adductors, so will continue to work on that. Physical Therapy Plan Next Visit Focus/Plan Next Note Type Discharge Summary Next Visit Plan Finalize HEP, recheck objective measures
--- NOTE | 2018-05-24 12:49 | PT.OTN ---
Current Diagnoses Radiculopathy, lumbar region (05/24/18) Dorsalgia, unspecified (05/24/18) Physical Therapy Treatment Note PT-OP-A Visit Information Start: 04/24/18 06:46 Freq: Status: Active Protocol: Document 05/24/18 09:45 AMB (Rec: 05/24/18 12:04 AMB [email or web address]) Out-Patient Physical Therapy Visit Information Visit Information Visit Type Discharge Summary Visit Start Time 09:45 Visit Stop Time 10:30 Total Visit Minutes 40 Visit Number 8 Number of HOURLY MANAGER Visits 0 Evaluation Information Evaluation Date 04/24/18 PT-OP-B Current Condition Start: 04/24/18 06:46 Freq: Status: Active Protocol: Document 04/24/18 14:00 AMB (Rec: 04/24/18 15:24 AMB [email or web address]) Current Condition History of Current Condition Onset Date 03/18/18 Current Complaints Radiating left leg pain, denies back pain History of Current Condition The patient felt immediate onset left leg pain when standing up and twisting from tying her shoes. She went to the ED and they diagnosed sciatica. Since then the pain has been improving, but it is still present in her groin and can go down to her mid covarrubias. She denies specific back pain. The pain is mostly in the groin and medial knee and is constant. Heat and ice seemed to make it worse initially. Left knee gave out on the stairs 2 weeks ago, but not since. 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 She has a son who lives in [place]. They live in a two story home. She does have a caregiver who comes for 3 hours on . Prior Treatments and Tests Lumbar X-ray showed narrowing of L3-4 disc space, but per her report her physician said the X-ray came back fine. Prior Functional Status Baseline Function- ADL's Independent Baseline Function- Mobility Independent Current Functional Impairments (Reported) Functional Limitations- ADL's Difficulty sleeping Functional Limitations- Mobility/Gait Decreased standing tolerance Functional Limitations- Work/School Avoiding washing the floors because she does this on her hands and knees. Personal Factors Other Personal Factors That May Effect Pt's has Alzheimer's Therapy/Recovery and she needs to be with him or else he becomes upset. PT-OP-C Subjective Start: 04/24/18 06:46 Freq: Status: Active Protocol: Document 05/24/18 09:45 AMB (Rec: 05/24/18 12:04 AMB [email or web address]) OP-PT Subjective Patient Comments Patient Comments Pt denies back or knee pain, but does get medial thigh pain at the end of the day. Palpable tightness at distal adductors, but pt feels that the 3/10 pain that is intermittent is livable. PT-OP-F Manual Assessment Start: 04/24/18 06:46 Freq: Status: Active Protocol: Document 05/17/18 10:29 RCC (Rec: 05/17/18 10:35 RCC [email or web address]) Manual Assessments Soft Tissue Assessment Soft Tissue Mobility Assessment TTP: L adductors PT-OP-L Special Tests Start: 04/24/18 06:46 Freq: Status: Active Protocol: Document 04/24/18 14:00 AMB (Rec: 04/24/18 16:14 AMB [email or web address]) Special Tests Lumbar Spine Special Tests Straight Leg Raise Test Results negative for sx reproduction PT-OP-M Strength Start: 04/24/18 06:46 Freq: Status: Active Protocol: Document 04/24/18 14:00 AMB (Rec: 04/24/18 16:14 AMB [email or web address]) Hip Strength Hip Manual Muscle Testing Right Flexion (L2) 4+ Good+ Abduction 4+ Good+ Adduction 4 Good Left Flexion (L2) 3+ Fair+ Abduction 4- Good- Adduction 3- Fair- Knee Strength Knee Manual Muscle Testing Right Flexion (S2) 5 Normal Extension (L3) 5 Normal Left Flexion (S2) 4+ Good+ Extension (L3) 4 Good Ankle/Foot Strength Ankle and Foot Manual Muscle Testing Right Dorsiflexion (L4) 5 Normal Plantarflexion (S1) 4 Good Left Dorsiflexion (L4) 5 Normal Plantarflexion (S1) 4 Good PT-OP-Q Treatments Start: 04/24/18 06:46 Freq: Status: Active Protocol: Document 05/24/18 09:45 AMB (Rec: 05/24/18 12:04 AMB [email or web address]) Cardio Equipment Recumbent Elliptical ([employer]) Duration (Minutes) 8 Resistance 4 Therapeutic Exercises Supine Exercises 11 Supine Exercise Name adductor/hamstring stretch Comments with band 10 Supine Exercise Name bridging Side bilateral Equipment Used 55 cm ball Reps/Minutes 1x20 9 Supine Exercise Name hip adduction Side bilateral Equipment Used ball Reps/Minutes 1x15 Comments 5 sec hold Sidelying Exercises 1 Sidelying Exercise Name hip adduction SLR Reps/Minutes 10 Manual Therapy Treatment Soft Tissue Mobilization 2 Body Location L adductors Mobilization Type Rolling Intensity/Depth Moderate Body Position Hooklying PT-OP-T Assessment and Plan Start: 04/24/18 06:46 Freq: Status: Active Protocol: Document 05/24/18 09:45 AMB (Rec: 05/24/18 12:12 AMB [email or web address]) Physical Therapy Assessment Goals 3 Impairment Body mechanics Short Term Goal (STG) The patient will squat down to the floor to assist her with dressing with good body mechanics and without an increase in baseline pain. MET STG Duration 4 weeks Medical Claims Assistant Goal (LTG) The patient will lift groceries from her car with good body mechanics. MET LTG Duration 8 weeks 2 Impairment Activity tolerance Short Term Goal (STG) The patient will be able to get back to sleep after being woken by her without left leg pain. MET STG Duration 4 weeks Medical Claims Assistant Goal (LTG) The patient will aircraft maintenance manager the kitchen to cook a meal for one hour with 2/10 pain or less. MET LTG Duration 8 weeks 1 Impairment Strength Short Term Goal (STG) The patient will improve her left hip and knee strength to at least 4/5. PARTIALLY MET STG Duration 4 weeks Medical Claims Assistant Goal (LTG) The patient will improve her left lower extremity strength so that she can easily get her left leg into bed without lifting it with her other leg or hand. MET LTG Duration 8 weeks Assessment Summary Assessment The patient's pain has reduced in severity, frequency, and is only at the medial thigh now. She will continue her exercises at home. Physical Therapy Plan Discharge Physical Therapy Discharge Reasons Patient Request Discharge Comments Continue with HEP
== END 2018-08-08 12:38 ==
LOC: PHYS 09:45
PROVIDERS: Family Provider Family Medicine; PCP Family Medicine; Visit Provider Nurse Practitioner Family
DX: M54.16 Radiculopathy, lumbar region (principal); M54.9 Dorsalgia, unspecified
CPT/HCPCS: 97110; 97112; 97140; 97162; 97530; 97535

== ENCOUNTER → 2019-02-06 09:34 | Outpatient (CLI) | payer MEDICARE, OTHER, SELFPAY ==
--- NOTE | 2019-02-06 | DI.MG.S_ITS ---
BILATERAL DIGITAL SCREENING MAMMOGRAM 3D/2D WITH CAD: 02/06/2019 CLINICAL: Routine screening. Comparison is made to exams dated: 01/28/2018 mammogram, 01/18/2017 mammogram, and 01/17/2016 mammogram - [facility]. There are scattered fibroglandular elements in both breasts. Current study was also evaluated with a Computer Aided Detection (CAD) system. There are benign vascular calcifications in both breasts. No significant masses, calcifications, or other findings are seen in either breast. There has been no significant interval change. IMPRESSION: There is no mammographic evidence of malignancy. A 1 year screening mammogram is recommended. This exam was interpreted at Station ID: [id number]. NOTE: For mammograms, a report in lay terms will be sent to the patient. Approximately 15% of breast malignancies will not be visualized mammographically. In the management of a palpable breast mass, a negative mammogram must not discourage biopsy of a clinically suspicious lesion. Electronically Signed By: Merritt mobley/blake:02/06/2019 12:47:36 letter sent: Normal Exam ACR BI-RADS Category 2: Benign Finding(s) 3342F
== END ==
PROVIDERS: PCP Family Medicine; Visit Provider Family Medicine
DX: Z12.31 Encounter for screening mammogram for malignant neoplasm of breast (principal)
CPT/HCPCS: 77063; 77067

== ENCOUNTER → 2019-03-04 08:00 | Outpatient (CLI) | payer MEDICARE, OTHER, SELFPAY ==
[2019-03-04 09:10] LABS: Add Manual Diff / Slide Review NO; Basophils Absolute Auto 0 /uL (0-100); Basophils Percent Auto 0.7 % (0-2); Eosinophils Absolute Auto 100 /uL (0-450); Eosinophils Percent Auto 2.4 % (2-4); Hematocrit 39.9 % (36-46); Hemoglobin 13.4 g/dL (12.0-16.0); Lymphocytes Absolute Auto 1300 /uL (1100-4500); Lymphocytes Percent Auto 20.7 % (25-40); Mean Corpuscular HGB Conc 33.6 % (30-36); Mean Corpuscular Hemoglobin 28.4 PG (26-34); Mean Corpuscular Volume 84.5 fL (80-100); Monocytes Absolute Auto 300 /uL (0-900); Monocytes Percent Auto 5.6 % (3-14); Neutrophils Absolute Auto 4300 /uL (1500-7000); Neutrophils Percent Auto 70.6 % (50-75); Platelet Count 217 X10^3/uL (150-400); Red Blood Cell Count 4.73 X10^6/uL (4.0-5.2); White Blood Cell Count 6.1 X10^3/uL (4.5-11.0)
[2019-03-04 09:12] LABS: Hemoglobin A1C% w Est Avg Glu 5.6 % (4.0-6.0)
[2019-03-04 09:31] LABS: Alanine Aminotransferase 22 IU/L (9-52); Albumin 4.3 g/dL (3.5-5.0); Albumin Globulin Ratio 1.3 (1.0-2.8); Alkaline Phosphatase 185 U/L (38-126); Aspartate Aminotransferase 26 IU/L (14-36); BUN Creatinine Ratio 21.1 (6-22); Blood Urea Nitrogen 19 mg/dL (7-17); Calcium 9.4 mg/dL (8.4-10.2); Carbon Dioxide 28 mmol/L (22-32); Cholesterol 195 mg/dL (140-199); Estimated Glomerular Filt Rate > 60.0 mL/min (>60); Globulin 3.3 g/dL (1.7-4.1); Glucose 117 mg/dL (80-110); HDL Cholesterol 49 mg/dL (40-60); HEMOLYSIS < 15 (0-50); LDL Cholesterol Calculated 134 mg/dL (<100); Total Protein 7.6 g/dL (6.3-8.2); Triglycerides 62 mg/dL (35-150)
[2019-03-04 09:46] LABS: Chloride 103 mmol/L (98-107); Potassium 4.7 mmol/L (3.4-5.1); Sodium 141 mmol/L (137-145)
[2019-03-04 10:23] LABS: Thyroid Stimulating Hormone 3.16 uIU/mL (0.47-4.68)
== END ==
PROVIDERS: PCP Family Medicine; Visit Provider Family Medicine
DX: E03.9 Hypothyroidism, unspecified (principal); E11.9 Type 2 diabetes mellitus without complications
CPT/HCPCS: 36415; 80053; 80061; 83036; 84443; 85025

== ENCOUNTER → 2020-10-05 08:28 | Outpatient (CLI) | payer MEDICARE, OTHER, SELFPAY ==
--- NOTE | 2020-10-05 08:31 | DI.RAD.S_ITS ---
PROCEDURE: XR CHEST 2V INDICATIONS: cough with hemoptysis TECHNIQUE: 2 views of the chest were acquired. COMPARISON: [facility], , CHEST 1 VIEW, 05/06/2012, 10:27. FINDINGS: Surgical changes and devices: None. Lungs and pleura: Right lower lobe infiltrate. No pleural effusions or pneumothorax. Mediastinum: Mediastinal contours are normal. Heart size is normal. Bones and chest wall: No suspicious bony abnormalities. Soft tissues appear unremarkable. IMPRESSION: Right lower lobe infiltrate suspicious for pneumonia. Dictated by: Nany Boswell M.D. on 10/05/2020 at 9:47 Approved by: Nany Boswell M.D. on 10/05/2020 at 9:48
[2020-10-05 09:26] LABS: Add Manual Diff / Slide Review NO; Basophils Absolute Auto 100 /uL (0-100); Basophils Percent Auto 0.7 % (0-2); Eosinophils Absolute Auto 200 /uL (0-450); Eosinophils Percent Auto 2.7 % (2-4); Hematocrit 35.5 % (36-46); Hemoglobin 11.8 g/dL (12.0-16.0); Lymphocytes Absolute Auto 1000 /uL (1100-4500); Lymphocytes Percent Auto 12.2 % (25-40); Mean Corpuscular HGB Conc 33.1 % (30-36); Mean Corpuscular Hemoglobin 27.2 PG (26-34); Mean Corpuscular Volume 82.1 fL (80-100); Monocytes Absolute Auto 500 /uL (0-900); Monocytes Percent Auto 5.7 % (3-14); Neutrophils Absolute Auto 6500 /uL (1500-7000); Neutrophils Percent Auto 78.7 % (50-75); Platelet Count 257 X10^3/uL (150-400); Red Blood Cell Count 4.33 X10^6/uL (4.0-5.2); Red Cell Distribution Width 13.6 % (11.6-14.8); White Blood Cell Count 8.2 X10^3/uL (4.5-11.0)
[2020-10-05 09:42] LABS: Alanine Aminotransferase 13 IU/L (<35); Albumin Globulin Ratio 1.2 (1.0-2.8); Alkaline Phosphatase 148 U/L (38-126); Aspartate Aminotransferase 26 IU/L (14-36); BUN Creatinine Ratio 14.7 (6-22); Bilirubin Total 1.2 mg/dL (0.2-1.3); Blood Urea Nitrogen 11 mg/dL (7-17); Calcium 9.4 mg/dL (8.4-10.2); Carbon Dioxide 27 mmol/L (22-32); Chloride 106 mmol/L (98-107); Estimated Glomerular Filt Rate > 60.0 mL/min (>60); Globulin 3.3 g/dL (1.7-4.1); Glucose 113 mg/dL (80-110); HEMOLYSIS < 15 (0-50); Sodium 140 mmol/L (137-145); Total Protein 7.3 g/dL (6.3-8.2)
== END ==
PROVIDERS: PCP Family Medicine; Referring Provider Family Medicine; Visit Provider Family Medicine
DX: R04.2 Hemoptysis (principal); R91.8 Other nonspecific abnormal finding of lung field
CPT/HCPCS: 36415; 71046; 80053; 85025

== ENCOUNTER → 2021-01-04 16:57 | Outpatient (CLI) | payer MEDICARE, OTHER, SELFPAY ==
--- NOTE | 2021-01-04 16:59 | DI.MG.S_ITS ---
BILATERAL DIGITAL SCREENING MAMMOGRAM 3D/2D WITH CAD: 01/04/2021 CLINICAL: Routine screening. Comparison is made to exams dated: 02/06/2019 mammogram, 01/28/2018 mammogram, and 01/18/2017 mammogram - [facility]. There are scattered fibroglandular elements in both breasts. Current study was also evaluated with a Computer Aided Detection (CAD) system. There are benign vascular calcifications in both breasts. No significant masses, calcifications, or other findings are seen in either breast. There has been no significant interval change. IMPRESSION: BENIGN There is no mammographic evidence of malignancy. A 1 year screening mammogram is recommended. This exam was interpreted at Station ID: [id number]. NOTE: For mammograms, a report in lay terms will be sent to the patient. Approximately 15% of breast malignancies will not be visualized mammographically. In the management of a palpable breast mass, a negative mammogram must not discourage biopsy of a clinically suspicious lesion. Electronically Signed By: Kolton mujica/blake:01/05/2021 07:48:17 letter sent: Normal Exam ACR BI-RADS Category 2: Benign Finding(s) 3342F
== END ==
PROVIDERS: PCP Family Medicine; Referring Provider Family Medicine; Visit Provider Family Medicine
DX: Z12.31 Encounter for screening mammogram for malignant neoplasm of breast (principal)
CPT/HCPCS: 77063; 77067

== ENCOUNTER → 2021-03-30 09:26 | Outpatient (CLI) | payer MEDICARE, OTHER, SELFPAY ==
--- NOTE | 2021-03-30 09:29 | DI.RAD.S_ITS ---
PROCEDURE: XR KNEE RT 3V INDICATIONS: rt knee injury TECHNIQUE: 3 views of the knee were acquired. COMPARISON: None. FINDINGS: Bones: Mid patellar fracture with mild distraction. No dislocations. No suspicious bony lesions. Soft tissues: Suprapatellar joint effusion. No suspicious soft tissue calcifications. IMPRESSION: Mid patellar fracture with mild distraction. Joint effusion is present. Dictated by: Dudley Williamson M.D. on 03/30/2021 at 12:20 Approved by: Dudley Williamson M.D. on 03/30/2021 at 12:22
== END ==
PROVIDERS: PCP Family Medicine; Referring Provider Family Medicine; Visit Provider Family Medicine
DX: S89.91XA Unspecified injury of right lower leg, initial encounter (principal)
CPT/HCPCS: 73562

== ENCOUNTER → 2021-07-11 11:51 | Outpatient (CLI) | payer MEDICARE, OTHER, SELFPAY | PROVIDERS: PCP Family Medicine; Referring Provider Family Medicine; Visit Provider Family Medicine | DX: M85.852 Other specified disorders of bone density and structure, left thigh (principal); Z13.820 Encounter for screening for osteoporosis; Z78.0 Asymptomatic menopausal state; E07.9 Disorder of thyroid, unspecified | CPT/HCPCS: 77080 ==

== ENCOUNTER → 2022-01-09 09:27 | Outpatient (CLI) | payer MEDICARE, OTHER, SELFPAY ==
--- NOTE | 2022-01-09 | DI.MG.S_ITS ---
BILATERAL DIGITAL SCREENING MAMMOGRAM 3D/2D WITH CAD: 01/09/2022 CLINICAL: Routine screening. Comparison is made to exams dated: 01/04/2021 mammogram, 02/06/2019 mammogram, and 01/28/2018 mammogram - [facility]. There are scattered fibroglandular elements in both breasts. Current study was also evaluated with a Computer Aided Detection (CAD) system. There are benign vascular calcifications in both breasts. No significant masses, calcifications, or other findings are seen in either breast. There has been no significant interval change. IMPRESSION: BENIGN There is no mammographic evidence of malignancy. A 1 year screening mammogram is recommended. This exam was interpreted at Station ID: [id number]. NOTE: For mammograms, a report in lay terms will be sent to the patient. Approximately 15% of breast malignancies will not be visualized mammographically. In the management of a palpable breast mass, a negative mammogram must not discourage biopsy of a clinically suspicious lesion. Electronically Signed By: Kylah singh/blake:01/09/2022 12:53:02 letter sent: Normal Exam ACR BI-RADS Category 2: Benign Finding(s) 3342F
== END ==
PROVIDERS: PCP Family Medicine; Referring Provider Family Medicine; Visit Provider Family Medicine
DX: Z12.31 Encounter for screening mammogram for malignant neoplasm of breast (principal)
CPT/HCPCS: 77063; 77067

== ENCOUNTER → 2022-07-12 09:14 | Outpatient (CLI) | payer MEDICARE, OTHER, SELFPAY ==
--- NOTE | 2022-07-12 09:19 | DI.ECHO.S_ITS ---
[place] [facility]---------+ [facility] +---------+ : : [address] : : : : [id number] : : : : Phone: [phone]+ Echocardiogram Report + + :Name: KAMILLA KAPOOR Study Date: 07/12/2022 Height: 63 in : :[facility] ReadingLocation: Weight: 145 lb : : Gender: Female BSA: 1.7 m2 : :: 1940 Age: 81 yrs BP: 157/93 mmHg: :Reason For Study: HEART MURMUR : :Ordering Physician: NONI, : :MALIKA Performed By: Angélica Bravo : :Referring: MALIKA CHENEY : + + Interpretation Summary The patient was in sinus rhythm with heart rates between 63-67 bpm during the exam. The left ventricular cavity is small. There is normal left ventricular wall thickness. The ejection fraction is estimated to be 60-65%. Diastolic parameters suggest probable normal left ventricular diastolic function and normal filling pressures. Mild concentric RV hypertrophy The right ventricle is normal size. The IVC is of normal diameter and collapses greater than 50% with a sniff. This suggests a low right atrial pressure of 3 mm Hg. There is a trace or physiologic amount of tricuspid regurgitation. No prior study for comparison. Procedure: A two-dimensional transthoracic echocardiogram with color flow and Doppler was performed. The study quality was technically adequate. There is no prior echocardiogram noted for this patient. The patient was in sinus rhythm with heart rates between 63-67 bpm during the exam. Left Ventricle: The left ventricular cavity is small. There is normal left ventricular wall thickness. The ejection fraction is estimated to be 60-65%. Diastolic parameters suggest probable normal left ventricular diastolic function and normal filling pressures. Right Ventricle: Mild concentric RV hypertrophy. The right ventricle is normal size. The right ventricular systolic function is normal. Atria: The left atrial size is normal. Right atrial size is normal. There is no Doppler evidence for an interatrial shunt. Mitral Valve: The mitral valve is normal in structure and function. There is trace mitral regurgitation. Aortic Valve: The aortic valve is not well visualized. The aortic valve is grossly normal. There is no aortic valve stenosis. No aortic regurgitation is present. Tricuspid Valve: The tricuspid valve is normal in structure and function. There is a trace or physiologic amount of tricuspid regurgitation. Pulmonic Valve: The pulmonic valve is not well visualized. There is no pulmonic valvular regurgitation. Great Vessels: The aortic root is normal size. The dimensions of the ascending aorta are normal. The IVC is of normal diameter and collapses greater than 50% with a sniff. This suggests a low right atrial pressure of 3 mm Hg. Pericardium/ Pleura There is no pericardial effusion. There is no pleural effusion. MMode/2D Measurements & Calculations LVIDd: 3.9 cm LVOT diam: 1.9 cm LVIDs: 2.5 cm Ao root diam: 3.1 cm FS: 35.9 % asc Aorta Diam: 3.3 cm IVSd: 0.97 cm Ao Arch Diam (Prox Trans): 3.1 cm LVPWd: 0.93 cm LV reyes. diameter/BSA (cm/m^2): 2.3 LV sys. diameter/BSA (cm/m^2): 1.5 LA A2 area: 14.9 cm2 RA long axis: 4.7 cm LA A4 area: 13.2 cm2 RA area: 13.1 cm2 LA length (vol): 4.6 cm RA vol: 30.7 ml LA vol: 36.1 ml RA : 18.2 ml/m2 LA vol index: 21.4 ml/m2 IVC diam: 1.2 cm RVD1 (basal): 2.7 cm RV Wall_phl: 0.60 cm RVD2 (mid): 2.5 cm TAPSE: 1.8 cm Doppler Measurements & Calculations Ao V2 max: 112.8 cm/sec LVOT Max Campbell: 84.2 cm/sec Ao V2 mean: 72.9 cm/sec LV V1 max P.8 mmHg Ao max P.1 mmHg LV V1 VTI: 18.8 cm Ao mean P.5 mmHg RAAD(I,D): 2.3 cm2 Ao V2 VTI: 23.6 cm RAAD(V,D): 2.1 cm2 sev ratio: 0.80 RAAD indexed to BSA (cm^2/m^2): 1.3 MV E max campbell: 52.2 cm/sec PA V2 max: 78.7 cm/sec MV A max campbell: 104.6 cm/sec PA V2 mean: 54.7 cm/sec MV E/A: 0.50 PA mean P.4 mmHg Med Peak E' Campbell: 4.2 cm/sec PA pr(Accel): 51.6 mmHg E/E' med: 12.6 Lat Peak E' Campbell: 4.3 cm/sec E/E' lat: 12.1 E/e' average: 12.3 MV dec time: 0.37 sec SV(LVOT): 53.3 ml Reading Physician:LU
== END ==
PROVIDERS: PCP Family Medicine; Referring Provider Family Medicine; Visit Provider Family Medicine
DX: R01.1 Cardiac murmur, unspecified (principal); I51.7 Cardiomegaly; I07.1 Rheumatic tricuspid insufficiency
CPT/HCPCS: 93306

== ENCOUNTER → 2022-11-01 09:03 | Outpatient (CLI) | payer OTHER, SELFPAY ==
[2022-11-01 10:39] LABS: Add Manual Diff / Slide Review NO; Basophils Absolute Auto 0 /uL (0-100); Basophils Percent Auto 0.6 % (0-2); Eosinophils Absolute Auto 100 /uL (0-450); Eosinophils Percent Auto 2.1 % (2-4); Hematocrit 39.5 % (36-46); Hemoglobin 13.4 g/dL (12.0-16.0); Lymphocytes Absolute Auto 1200 /uL (1100-4500); Lymphocytes Percent Auto 17.7 % (25-40); Mean Corpuscular HGB Conc 33.8 % (30-36); Mean Corpuscular Hemoglobin 28.6 PG (26-34); Mean Corpuscular Volume 84.7 fL (80-100); Monocytes Absolute Auto 300 /uL (0-900); Monocytes Percent Auto 4.3 % (3-14); Neutrophils Absolute Auto 5000 /uL (1500-7000); Neutrophils Percent Auto 75.3 % (50-75); Platelet Count 189 X10^3/uL (150-400); Red Blood Cell Count 4.67 X10^6/uL (4.0-5.2); Red Cell Distribution Width 13.4 % (11.6-14.8); White Blood Cell Count 6.6 X10^3/uL (4.5-11.0)
[2022-11-01 11:57] LABS: Alanine Aminotransferase 21 IU/L (<35); Albumin 4.5 g/dL (3.5-5.0); Albumin Globulin Ratio 1.3 (1.0-2.8); Alkaline Phosphatase 149 U/L (38-126); Aspartate Aminotransferase 34 IU/L (14-36); Bilirubin Total 1.6 mg/dL (0.2-1.3); Blood Urea Nitrogen 19 mg/dL (7-17); Calcium 9.2 mg/dL (8.4-10.2); Carbon Dioxide 25 mmol/L (22-32); Chloride 107 mmol/L (98-107); Cholesterol 216 mg/dL (140-199); Estimated Glomerular Filt Rate 57 mL/min (>60); Globulin 3.5 g/dL (1.7-4.1); Glucose 104 mg/dL (80-110); HDL Cholesterol 55 mg/dL (40-60); HEMOLYSIS < 15 (0-50); LDL Cholesterol Calculated 147 mg/dL (<100); Potassium 3.8 mmol/L (3.4-5.1); Sodium 141 mmol/L (137-145); Triglycerides 70 mg/dL (35-150)
[2022-11-01 12:34] LABS: Thyroid Stimulating Hormone 0.517 uIU/mL (0.47-4.68)
== END ==
PROVIDERS: PCP Family Medicine; Referring Provider Family Medicine; Visit Provider Family Medicine
DX: E03.9 Hypothyroidism, unspecified (principal); I10 Essential (primary) hypertension
CPT/HCPCS: 36415; 80053; 80061; 84443; 85025

== ENCOUNTER → 2025-01-30 09:08 | Outpatient (CLI) | payer OTHER, SELFPAY ==
[2025-01-30 11:03] LABS: TSH w/ Reflex to FT4 1.86 uIU/mL (0.47-4.68)
[2025-01-30 11:06] LABS: BUN Creatinine Ratio 17.3 (6-22); Blood Urea Nitrogen 19 mg/dL (7-17); Calcium 9.9 mg/dL (8.4-10.2); Carbon Dioxide 27 mmol/L (22-32); Chloride 103 mmol/L (98-107); Estimated Glomerular Filt Rate 50 mL/min (>60); Glucose 97 mg/dL (80-110); HEMOLYSIS < 15 (0-50); Sodium 140 mmol/L (137-145)
== END ==
PROVIDERS: PCP Family Medicine; Referring Provider Family Medicine; Visit Provider Family Medicine
DX: E03.9 Hypothyroidism, unspecified (principal); I10 Essential (primary) hypertension
CPT/HCPCS: 36415; 80048; 84443

== ENCOUNTER → 2025-07-22 10:43 | Outpatient (CLI) | payer OTHER, SELFPAY ==
--- NOTE | 2025-07-22 10:45 | DI.RAD.S_ITS ---
PROCEDURE: XR HIP W PEL IF DONE LT 2V INDICATIONS: pain low back/left hip, can barely walk x 1 week TECHNIQUE: AP pelvis with lateral view(s) of the left hip(s). COMPARISON: [facility], CR, XR LUMBAR SPINE 2-3V, 07/22/2025, 11:01. FINDINGS: Bones: No fractures or dislocations. Pelvic ring appears intact. No suspicious bony lesions. There is moderate superior joint space narrowing seen of both hips, with associated remodeling changes with subchondral sclerosis and osteophyte formation. Soft tissues: The visualized bowel gas pattern is normal. Presumed calcified fibroids are present. IMPRESSION: No displaced fracture can be seen on this plain film study. 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 Dictated by: Angel Kang M.D. on 07/22/2025 at 10:37 Approved by: Angel Kang M.D. on 07/22/2025 at 10:37
--- NOTE | 2025-07-22 10:45 | DI.RAD.S_ITS ---
PROCEDURE: XR LUMBAR SPINE 2-3V INDICATIONS: pain low back/left hip, can barely walk TECHNIQUE: 3 views of the lumbar spine were acquired. COMPARISON: [facility], CR, XR HIP W PEL LT 2V, 07/22/2025, 11:01. [facility], CR, XR LUMBAR SPINE 2-3V, 03/22/2018, 15:39. FINDINGS: Bones: 5 [id number] vertebrae are present. There is normal bony alignment. No vertebral body compression fractures. No suspicious bony lesions. There is moderate disc space narrowing at L1-L2, L2-L3, and L3-L4. Mild disc space narrowing is seen at L4-L5. Endplate irregularity and sclerosis can be seen, which are overall worst at the L2-L3 level. Lower lumbar spine facet arthropathy is seen. Soft tissues: Overlying bowel gas pattern is normal. Stable soft-tissue calcifications can be seen, including presumed uterine fibroids. IMPRESSION: No clara acute plain film abnormality is seen. Multiple levels of degenerative change are seen. Dictated by: Angel Kang M.D. on 07/22/2025 at 10:38 Approved by: Angel Kang M.D. on 07/22/2025 at 10:39
== END ==
PROVIDERS: PCP Family Medicine; Referring Provider Physician Assistant; Visit Provider Physician Assistant
DX: S76.012A Strain of muscle, fascia and tendon of left hip, initial encounter (principal); M16.0 Bilateral primary osteoarthritis of hip; M51.369 Other intervertebral disc degeneration, lumbar region without mention of lumbar back pain or lower extremity pain
CPT/HCPCS: 72100; 73502